=== PATIENT | male | born 2000 | race Two or more races ===

== ENCOUNTER 2019-11-03 04:21 | Emergency (ER) | payer OTHER, BC ==
[~2019-11-03] VITALS: Ht 175.3 cm; Wt 69.8 kg
[2019-11-03 04:31] VITALS: BP 107/65
[2019-11-03] MEDS ORDERED: KETOROLAC 30 MG/1 ML IM ONE (05:00)
[2019-11-03] MEDS ORDERED: KETOROLAC 30 MG/1 ML ONE (05:05)
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
== END 2019-11-03 06:16 | disposition home or self-care (01) ==
LOC: ED 06:13
DX: S62.647A Nondisplaced fracture of proximal phalanx of left little finger, initial encounter for closed fracture (principal); R07.89 Other chest pain; G89.11 Acute pain due to trauma; Y08.89XA Assault by other specified means, initial encounter; Y93.89 Activity, other specified; Y92.488 Other paved roadways as the place of occurrence of the external cause; Y99.8 Other external cause status
CPT/HCPCS: 29125; 71045; 73140; 96372; 99284; J1885